=== PATIENT | male | born 1985 | race Caucasian/White ===

== ENCOUNTER → 2021-04-16 14:18 | Outpatient (CLI) | payer OTHER, MEDICAID, SELFPAY ==
--- NOTE | 2021-04-16 14:21 | DI.RAD.S_ITS ---
PROCEDURE: XR FOOT LT MIN 3V INDICATIONS: Nail through foot at base of toe TECHNIQUE: 3 views of the foot were acquired. COMPARISON: None. FINDINGS: Bones: No fractures or dislocations. No suspicious bony lesions. First MTP joint osteoarthritis. Soft tissues: No tibiotalar joint effusion. Achilles tendon appears normal. No radiodense foreign body. No soft tissue gas. IMPRESSION: No radiodense foreign body. No fracture. No osseous lesion. If symptoms and/or clinical suspicion for pathology persists, further assessment with repeat radiographs (7-10 days) or advanced imaging (e.g. CT, MRI or bone scan) should be considered. Dictated by: Carmen Chaidez MD, PhD on 04/16/2021 at 14:38 Approved by: Carmen Chaidez MD, PhD on 04/16/2021 at 14:39
== END ==
PROVIDERS: Referring Provider Physician Assistant; Visit Provider Physician Assistant
DX: S99.822A Other specified injuries of left foot, initial encounter (principal); W45.0XXA Nail entering through skin, initial encounter
CPT/HCPCS: 73630

== ENCOUNTER → 2023-03-23 12:07 | Outpatient (CLI) | payer OTHER, MEDICAID, SELFPAY | PROVIDERS: Visit Provider Nurse Practitioner Family | DX: J02.9 Acute pharyngitis, unspecified (principal) | CPT/HCPCS: 87070; 87880 ==

== ENCOUNTER → 2023-11-24 10:07 | Outpatient (CLI) | payer OTHER, MEDICAID, SELFPAY ==
--- NOTE | 2023-11-24 10:09 | DI.RAD.S_ITS ---
PROCEDURE: XR CHEST 2V INDICATIONS: Cough TECHNIQUE: 2 views of the chest were acquired. COMPARISON: None. FINDINGS: Surgical changes and devices: None. Lungs and pleura: Lungs are clear. No pleural effusions or pneumothorax. Mediastinum: Mediastinal contours are normal. Heart size is normal. Bones and chest wall: No suspicious bony abnormalities. Soft tissues appear unremarkable. IMPRESSION: No acute cardiopulmonary abnormality is seen. Dictated by: Bertrand Baxter M.D. on 11/24/2023 at 11:18 Approved by: Bertrand Baxter M.D. on 11/24/2023 at 11:19
== END ==
PROVIDERS: Referring Provider Nurse Practitioner Family; Visit Provider Nurse Practitioner Family
DX: R05.9 Cough, unspecified (principal)
CPT/HCPCS: 71046

== ENCOUNTER → 2024-07-02 13:57 | Outpatient (CLI) | payer OTHER, MEDICAID, SELFPAY ==
--- NOTE | 2024-07-02 13:58 | DI.MRI.S_ITS ---
PROCEDURE: MR ELBOW RT WO CON INDICATIONS: Lateral elbow pain unresponsive to conservative tx, home PT TECHNIQUE: Noncontrast coronal proton density fast spin echo and T2 fast spin echo with fat saturation, axial and sagittal T1 spin echo and T2 fast spin echo with fat saturation through the elbow. COMPARISON: None. FINDINGS: Image quality: Excellent. Lateral structures: The lateral ulnar collateral ligament and radial collateral ligament both appear intact. Low-grade tear of the common extensor tendon origin. Medial structures: The ulnar collateral ligament appears intact. The overlying common flexor tendon appears normal. Edema of the ulnar nerve, raising concern for of ulnar neuritis. Anterior structures: The biceps and brachialis tendons both appear intact as they insert onto the proximal radius and ulna, respectively. No bicipitoradial bursal fluid. The median and radial neurovascular bundles appear normal; no focal muscle atrophy to suggest nerve impingement. Posterior structures: The conjoint triceps tendon from the long and lateral heads appears intact. The medial head of the triceps tendon also appears normal, with direct muscle insertion onto the olecranon. No olecranon bursal fluid. Bone and cartilage: No bone marrow contusions or fractures. No osteochondral injuries. IMPRESSION: 1. Low-grade tear of the common extensor tendon origin. 2. Findings concerning for ulnar neuritis. Dictated by: Dolores Siddiqui M.D. on 07/03/2024 at 21:38 Approved by: Dolores Siddiqui M.D. on 07/03/2024 at 21:42
== END ==
LOC: MRI 13:57
PROVIDERS: PCP Family Medicine; Referring Provider Family Medicine; Visit Provider Family Medicine
DX: M25.521 Pain in right elbow (principal); M77.11 Lateral epicondylitis, right elbow; S56.511A Strain of other extensor muscle, fascia and tendon at forearm level, right arm, initial encounter
CPT/HCPCS: 73221

== ENCOUNTER 2025-03-02 10:35 | Emergency (ER) | payer MEDICAID, SELFPAY ==
[2025-03-02 10:38] VITALS: BP 145/90; PULSE 63; RESP 13; TEMP 36.1; O2SAT 98; BMI 26.4
[2025-03-02] MEDS: ACETAMINOPHEN 325 MG TABLET 975 MG PO (11:33)
--- NOTE | 2025-03-02 11:39 | ED_ITS ---
HPI - Wound/Laceration <Lorie Adams PA-C - Last Filed: 03/02/25 12:38> General Chief Complaint: Wound/Laceration Stated Complaint: Cut right hand , needs stitches per patient Time Seen by Provider: 03/02/25 11:11 Source: patient Mode of arrival: Ambulatory History of Present Illness HPI narrative: Mr. Miguel is a pleasant 39-year-old male with no significant past medical history who presents to the emergency department for a laceration to his right palm that occurred prior to arrival. Patient was working when he sliced his right hand on a concrete travel. He has a linear laceration on his right thenar eminence. There is no active bleeding. He still has full range of motion and good sensation of the right hand. He was worried he might need stitches however he would like to avoid any needles if possible. His last Tdap was in 2020 and he is not on any blood thinners. Related Data Previous Rx's Medication Instructions Recorded atomoxetine 80 mg capsule 80 mg PO QAM #90 caps 08/23/24 Allergies Allergy/AdvReac Type Severity Reaction Status Date / Time sulfamethoxazole Allergy Verified 03/02/25 10:38 [From ] trimethoprim [From ] Allergy Verified 03/02/25 10:38 Review of Systems <Lorie Adams PA-C - Last Filed: 03/02/25 12:38> Review of Systems ROS Unobtainable: All systems reviewed & are unremarkable except as noted in HPI and below Patient History <Lorie Adams PA-C - Last Filed: 03/02/25 12:38> Medical History Attention deficit disorder (ADD) in adult (~1991) Anxiety Depression PTSD (post-traumatic stress disorder) (~2007) History of methamphetamine abuse (~2003) Eczema (~1992) Hearing decreased Surgical History Anesthesia History of dental surgery (~2022) History of tonsillectomy (~1991) History of facial surgery (~2003) Family History Father Diabetes mellitus COPD (chronic obstructive pulmonary disease) Hypertension Hyperlipidemia Mental health problem Mother COPD (chronic obstructive pulmonary disease) Grandmother Breast cancer Grandfather Cancer Grandmother Diabetes mellitus Social History Smoking Status: Unknown if ever smoked Smoking Status: Unknown if ever smoked Exam <Lorie Adams PA-C - Last Filed: 03/02/25 12:38> Narrative Exam Narrative: GENERAL: 39 year old patient appears stated age. Well-developed patient, in no acute distress. HEAD: Atraumatic. Normocephalic. CARDIOVASCULAR: Regular rate RESPIRATORY: ?Nonlabored respirations. ?Speaking in clear, full sentences. EXTREMITIES: On the right thenar eminence there is an approximately 4 cm linear superficial laceration. No active bleeding, deep structures intact. Very superficial 1 cm laceration on the distal tip of the right thumb. Patient still has full range of motion of the right hand, sensation intact to light touch throughout, brisk capillary refill and strong radial pulses bilaterally. NEURO: AOx3. ?Clear speech. ?Moves all 4 extremities appropriately. Initial Vital Signs Initial Vital Signs: Vital Signs Temperature 97.0 F L 03/02/25 10:38 Pulse Rate 63 03/02/25 10:38 Respiratory Rate 13 03/02/25 10:38 Blood Pressure 145/90 H 03/02/25 10:38 Pulse Oximetry 98 03/02/25 10:38 Oxygen Delivery Method Room Air 03/02/25 10:38 <Susan Weller DO - Last Filed: 03/03/25 08:06> Initial Vital Signs Initial Vital Signs: Vital Signs Temperature 97.0 F L 03/02/25 10:38 Pulse Rate 63 03/02/25 10:38 Respiratory Rate 13 03/02/25 10:38 Blood Pressure 145/90 H 03/02/25 10:38 Pulse Oximetry 98 03/02/25 10:38 Oxygen Delivery Method Room Air 03/02/25 10:38 Procedures <Lorie Adams PA-C - Last Filed: 03/02/25 12:38> Laceration Repair Laceration 1: Site: hand (R thenar eminence ) Side (If applicable): right Size (cm): 4 Description: linear Depth: simple, single layer Pre-repair: wound explored and irrigated extensively (cleansed with betadine) Skin layer closed with: steri-strips (5) Course <Lorie Adams PA-C - Last Filed: 03/02/25 12:38> Orders Ordered: Discontinued Medications Acetaminophen (Acetaminophen 325 Mg Tablet) 975 mg PO NOW ONE Stop: 03/02/25 11:20 Last Admin: 03/02/25 11:33 Dose: 975 mg Documented By: RB Vital Signs Vital signs: Vital Signs - 8 hr 03/02/25 10:38 Temperature 97.0 F L Pulse Rate 63 Respiratory Rate 13 Blood Pressure 145/90 H Pulse Oximetry 98 Oxygen Delivery Method Room Air <Susan Weller DO - Last Filed: 03/03/25 08:06> Orders Ordered: Discontinued Medications Acetaminophen (Acetaminophen 325 Mg Tablet) 975 mg PO NOW ONE Stop: 03/02/25 11:20 Last Admin: 03/02/25 11:33 Dose: 975 mg Documented By: RB Vital Signs Vital signs: Vital Signs - 8 hr 03/02/25 10:38 Temperature 97.0 F L Pulse Rate 63 Respiratory Rate 13 Blood Pressure 145/90 H Pulse Oximetry 98 Oxygen Delivery Method Room Air MDM - Wound/Laceration <Lorie Adams PA-C - Last Filed: 03/02/25 12:38> Medical Records Attestation: I reviewed the patient's medical records. [facility] Narrative Medical decision making narrative: 39-year-old male with no significant past medical history who presents to the emergency department for a laceration to his right palm that occurred prior to arrival. TDap UTD. and daughter here with him. Differential diagnosis includes but is not limited to laceration, abrasion, etc. On exam the patient is in no acute distress, nontoxic appearing, vital signs appropriate. He has a superficial linear laceration on the right thenar eminence that occurred prior to arrival. After shared decision-making with the patient, we will proceed with cleansing of the wound and repair using Dermabond and Steri-Strips. Tylenol ordered for pain control per patient request. Wound irrigated and cleansed extensively, easily closed using Steri-Strips and Dermabond. Nonadherent dressing applied. Discussed proper wound care and signs and symptoms of infection. ED return precautions discussed. Patient and verbalized understanding of all information, he is agreeable to plan and stable for discharge home. Discharge Plan Departure Patient Disposition: Home Clinical Impression: Laceration of hand, right Qualifiers: Encounter type: initial encounter Foreign body presence: without foreign body Qualified Code(s): S61.411A - Laceration without foreign body of right hand, initial encounter Instructions: DI for Laceration Repair Activity Restrictions/Additional Instructions: Today you had a laceration to your right palm. Please keep the dressing on your wound clean, dry, and intact for the next 24 hours. After this time, you may remove the dressing and gently clean the wound with soap and water, then pat dry. Keep the wound clean and covered. Avoid soaking the wound in any water such as a bath, pool, or the ocean. If you develop any signs of wound infection such as increased redness, pus drainage, streaking redness, or fevers, please return to the ER immediately for evaluation. Avoid picking or peeling off the glue/skins tape. Allow it to come off on its own. You may trim the edges if they start to lift and bother you. Please follow up with your primary care doctor within the next 2-3 days for ER follow-up. (If you do not have a PCP you can call [phone]. ?to schedule an appointment with an [facility] Primary Care Provider) IF YOU DEVELOP ANY NEW OR WORSENING SYMPTOMS, RETURN TO THE ER! Please read the attached instructions, they highlight more specific treatments and interventions for you at home. Thank you for letting me participate in your care, Lorie Adams PA-C Prescriptions: No Action atomoxetine 80 mg capsule 80 mg PO QAM Qty: 90 2RF Referrals: Luis Clemons MD [Primary Care Provider] - Stand Alone Forms: Patient Portal/API/Survey ED Sign-out <Susan Weller DO - Last Filed: 03/03/25 08:06> Cosign ED Attending Cosshaylaature Attestation: I was available for consultation.
[2025-03-02 12:45] VITALS: BP 139/83; PULSE 58; RESP 16; TEMP 36.3; O2SAT 99
== END 2025-03-02 12:45 | disposition home or self-care (01) ==
PROVIDERS: Emergency Provider Physician Assistant; PCP Family Medicine
DX: S61.411A Laceration without foreign body of right hand, initial encounter (principal); S61.011A Laceration without foreign body of right thumb without damage to nail, initial encounter; W26.8XXA Contact with other sharp object(s), not elsewhere classified, initial encounter
CPT/HCPCS: 99283